=== PATIENT | female | born 1980 | race African-American/Black ===

== ENCOUNTER 2017-09-23 11:41 | Day surgery (SDC) | payer BC | END 2017-09-24 08:33 | disposition home or self-care (01) | LOC: GIL 11:41 | DX: K29.60 Other gastritis without bleeding (principal); E66.01 Morbid (severe) obesity due to excess calories; Z68.39 Body mass index [BMI] 39.0-39.9, adult | CPT/HCPCS: 43239 ==

== ENCOUNTER → 2018-04-25 | Outpatient (CLI) | payer BC ==
[2018-04-25 14:00] LABS: ADD UMIC NO; UR ASCORBIC ACID NEGATIVE (NEGATIVE); UR BILIRUBIN (Dip) NEGATIVE (NEGATIVE); UR BLOOD (Dip) NEGATIVE (NEGATIVE); UR CLARITY CLEAR (CLEAR); UR COLOR YELLOW (YELLOW); UR GLUCOSE (Dip) NEGATIVE (NEGATIVE); UR KETONES (Dip) NEGATIVE (NEGATIVE); UR LEUKOCYTE ESTERASE (Dip) NEGATIVE Leu/ul (NEGATIVE); UR NITRITE (Dip) NEGATIVE (NEGATIVE); UR SPECIFIC GRAVITY (Dip) 1.026 (1.003-1.030); UR TOTAL PROTEIN (Dip) NEGATIVE (NEGATIVE); UR UROBILINOGEN (Dip) 1+ mg/dL (NEGATIVE)
[2018-04-25 14:36] LABS: T4 (THYROXINE) 9.8 ug/dl (5.5-11.0)
[2018-04-25 14:50] LABS: TRIIODOTHYRONINE 1.45 ng/ml (0.97-1.69)
[2018-04-25 14:50] LABS: THYROID STIMULATING HORMONE 0.431 MIU/L (0.465-4.680)
== END | disposition home or self-care (01) ==
LOC: LAB 13:22
DX: E07.9 Disorder of thyroid, unspecified (principal)
CPT/HCPCS: 76536; 81003; 84436; 84443; 84480

== ENCOUNTER 2019-01-07 02:11 | Emergency (ER) | payer OTHER, BC ==
[2019-01-07 03:18] LABS: ADD UMIC YES; UR ASCORBIC ACID NEGATIVE (NEGATIVE); UR BILIRUBIN (Dip) NEGATIVE (NEGATIVE); UR BLOOD (Dip) 1+ mg/dL (NEGATIVE); UR CLARITY CLEAR (CLEAR); UR COLOR YELLOW (YELLOW); UR GLUCOSE (Dip) NEGATIVE (NEGATIVE); UR KETONES (Dip) NEGATIVE (NEGATIVE); UR LEUKOCYTE ESTERASE (Dip) NEGATIVE Leu/ul (NEGATIVE); UR MUCUS FEW /HPF (NONE SEEN); UR NITRITE (Dip) NEGATIVE (NEGATIVE); UR RBC 1 /HPF (0-5); UR SPECIFIC GRAVITY (Dip) 1.027 (1.003-1.030); UR SQUAMOUS EPITHELIAL CELL FEW /HPF (FEW); UR TOTAL PROTEIN (Dip) NEGATIVE (NEGATIVE); UR UROBILINOGEN (Dip) NEGATIVE (NEGATIVE); UR WBC 0 /HPF (0-5)
[2019-01-07] MEDS: KETOROLAC 30 MG INJ IM (04:09)
== END 2019-01-07 05:26 | disposition home or self-care (01) ==
LOC: FTE 02:11
DX: S39.92XA Unspecified injury of lower back, initial encounter (principal); M54.40 Lumbago with sciatica, unspecified side; M41.9 Scoliosis, unspecified; X58.XXXA Exposure to other specified factors, initial encounter; Y92.89 Other specified places as the place of occurrence of the external cause
CPT/HCPCS: 72072; 72100; 81001; 81025; 96372; 99284-25